=== PATIENT | female | born 1985 | race African-American/Black ===

== ENCOUNTER 2023-12-18 16:43 | Outpatient (CLI) | payer BC, SELFPAY | END 2023-12-18 16:44 | disposition home or self-care (01) | LOC: AMB 12-28 01:20 | PROVIDERS: PCP Family Medicine; Visit Provider Family Medicine | DX: T78.1XXA Other adverse food reactions, not elsewhere classified, initial encounter (principal); T78.49XA Other allergy, initial encounter | CPT/HCPCS: A0425; A0429 ==

== ENCOUNTER 2023-12-18 17:15 | Emergency (ER) | payer BC, SELFPAY ==
[2023-12-18 17:23] VITALS: BP 122/66; PULSE 111; RESP 18; TEMP 37.4; O2SAT 97; BMI 37.6
--- NOTE | 2023-12-18 17:31 | ED.ALLEREA ---
HPI - Allergic Reaction General Time Seen by Provider: 17:32 Date Seen: 12/18/23 Chief complaint: Allergic Reaction Stated complaint: allergic reaction Time Seen by Provider: 12/18/23 17:31 Source: patient, EMS, RN notes reviewed and old records reviewed Mode of arrival: EMS Limitations: no limitations History of Present Illness HPI narrative: 30-year-old female who comes in today with possible allergic reaction, used a hair treatment that she made at of avocado, banana, egg, and manages, after applying this noted itching. She has not used this particular product before, also says she has not eaten avocados before to her knowledge. Benadryl given by EMS, patient is still having lot of itching and some swelling around her eyes, denies breathing difficulty, cough, tongue or lip swelling. Related Data Previous Rx's Medication Instructions Recorded cetirizine 10 mg capsule (Zyrtec) 10 mg PO DAILY #7 caps 12/18/23 epinephrine 0.3 mg/0.3 mL 0.3 mg (0.3 mL) IM Q5-15M PRN #2 ea 12/18/23 injection, auto-injector (EpiPen 2-Juan J) methylprednisolone 4 mg tablets in See Rx Instructions PO .COMPLEX 12/18/23 a dose pack (Medrol (Juan J)) #21 ea Allergies Allergy/AdvReac Type Severity Reaction Status Date / Time No Known Drug Allergies Allergy Verified 12/18/23 17:27 [facility] Social History Smoking Status: Never smoker Do you use any of these nicotine containing products: Vaping Products Second hand tobacco smoke exposure: No How often do you have a drink containing alcohol: monthly or less How many standard drinks containing alcohol do you have on a typical day: 1 or 2 AUDIT-C Alcohol total score: 1 Non-prescribed substance use: denies use service: No Exam Narrative: Exam Narrative: General: Well-developed and well-nourished, no acute distress Head: Atraumatic and normocephalic Eyes: Pupils are equal reactive, extraocular motions intact, conjunctiva clear ENT: External nose and ears are normal, posterior pharynx without erythema or exudate Neck: No midline cervical tenderness, full spontaneous range of motion the neck, trachea midline, no adenopathy Heart: Regular rate and rhythm no murmurs or thrills Lungs: Clear to auscultation bilaterally without wheezes or crackles Abdomen: Soft, nontender, nondistended with active bowel sounds Musculoskeletal: No tenderness, deformity, or edema Neurologic: Awake, alert, and oriented x3, no gross focal neurologic deficits, cranial nerves intact as tested Psych: Mood and affect are appropriate Skin: Excoriations of the feet, hands. Fine generalized erythematous rash. Miles periorbital swelling bilaterally. Const: Vital Signs, click to edit/add: Vital Signs - 24 hr 12/18/23 17:23 12/18/23 17:42 12/18/23 18:18 Temperature 99.4 F Pulse Rate [Pulse Oximeter] 111 H 102 H 70 Respiratory Rate 18 18 18 Blood Pressure [Le ft Upper Arm] 122/66 112/92 H 121/82 Pulse Oximetry 97 97 Oxygen Delivery Me thod Room Air Room Air Room Air 12/18/23 19:17 Temperature Pulse Rate [Pulse Oximeter] 65 Respiratory Rate 18 Blood Pressure [Le ft Upper Arm] 121/82 Pulse Oximetry 97 Oxygen Delivery Me thod Room Air Course Course ED Course: Patient seen examined, prior records are reviewed. Patient presents today with itching, periorbital swelling after using a new product for her today. On exam, scratching and numerous excoriations, no wheezing, no lip or tongue swelling, no difficulty swallowing or speaking. Benadryl given by EMS, patient will be given epinephrine, Pepcid, Decadron. Reevaluation(s) Time of Reevaluation #1: 18:44 Reevaluation #1: Patient recheck, heart rate in itching improved. Will continue to monitor with plan for discharge with Medrol Dosepak, continued antihistamines. Vital Signs Vital signs: Initial Vital Signs Temperature 99.4 F 12/18/23 17:23 Temperature Source Temporal Artery Scan 12/18/23 17:23 Pulse Rate 111 H 12/18/23 17:23 Pulse Rhythm Regular 12/18/23 17:23 Pulse Strength 3+ Normal 12/18/23 17:23 Respiratory Rate 18 12/18/23 17:23 Blood Pressure 122/66 12/18/23 17:23 Blood Pressure Mean 84 12/18/23 17:23 Blood Pressure Position Sitting 12/18/23 17:23 Pulse Oximetry 97 12/18/23 17:23 Oxygen Delivery Method Room Air 12/18/23 17:23 Vital Signs Temperature 99.4 F 12/18/23 17:23 Pulse Rate 111 H 12/18/23 17:23 Respiratory Rate 18 12/18/23 17:23 Blood Pressure 122/66 12/18/23 17:23 Pulse Oximetry 97 12/18/23 17:23 Oxygen Delivery Method Room Air 12/18/23 17:23 Temperature 99.4 F 12/18/23 17:23 Pulse Rate 65 12/18/23 19:17 Respiratory Rate 18 12/18/23 19:17 Blood Pressure 121/82 12/18/23 19:17 Pulse Oximetry 97 12/18/23 19:17 Oxygen Delivery Method Room Air 12/18/23 19:17 Medications Administered Medications: Discontinued Medications Generic Name Dose Route Start Last Admin Trade Name Docq PRN Reason Stop Dose Admin Dexamethasone 10 mg 12/18/23 17:38 12/18/23 18:07 Dexamethasone 10 Mg/Ml Inj IVP 12/18/23 17:39 10 mg ONCE ONE Administration Epinephrine HCl 0.3 mg 12/18/23 17:38 12/18/23 17:52 Epinephrine 0.3 Mg Pen IM 12/18/23 17:39 0.3 mg ONCE ONE Administration Famotidine 20 mg 12/18/23 17:38 12/18/23 18:10 Famotidine 10 Mg/Ml Inj IVP 12/18/23 17:39 20 mg ONCE ONE Administration Discharge Plan Discharge Clinical Impression: Anaphylaxis Patient Disposition: Home, Self-Care Condition: Improved Instructions: General Allergic Reaction (ED) Additional Instructions: Take Benadryl 50 mg every 6 hours for 24 hours then every 6 hours as needed Take Zyrtec as prescribed for 1 week Take Medrol Dosepak as prescribed Activity Level: No Restrictions Discharge Diet: Regular Prescriptions: New Zyrtec 10 mg capsule 10 mg PO DAILY Qty: 7 0RF methylprednisolone [Medrol (Juan J)] 4 mg tablets,dose pack See Rx Instructions .ROUTE .COMPLEX Qty: 21 0RF Rx Instructions: for 6 days epinephrine [EpiPen 2-Juan J] 0.3 mg/0.3 mL auto-injector 0.3 mg IM Q5-15M PRNQty: 2 0RF Rx Instructions: do not exceed 3 doses per episode. If you have to use your EpiPen, call 911 Follow Up/Referrals: Provider,Not a Local [Primary Care Provider] - Stand Alone Forms: MyHealth Info Instructions
[2023-12-18 17:42] VITALS: BP 112/92; PULSE 102; RESP 18; O2SAT 97
[2023-12-18] MEDS: EPINEPHrine 0.3 MG PEN IM (17:52)
[2023-12-18] MEDS: dexAMETHasone 10 MG/ML inj IVP (18:07)
[2023-12-18] MEDS: FAMOTIDINE 10 MG/ML inj 20 MG IVP (18:10)
[2023-12-18 18:18] VITALS: BP 121/82; PULSE 70; RESP 18
[2023-12-18 19:17] VITALS: BP 121/82; PULSE 65; RESP 18; O2SAT 97
[2023-12-18 20:06] VITALS: BP 117/69; PULSE 74; RESP 18
== END 2023-12-18 19:35 | disposition home or self-care (01) ==
PROVIDERS: Emergency Provider Family Medicine
DX: T78.2XXA Anaphylactic shock, unspecified, initial encounter (principal)
CPT/HCPCS: 96372; 96374; 96375; 99284; J0171; J1100; S0028

== ENCOUNTER 2024-07-23 10:12 | Emergency (ER) | payer BC, SELFPAY ==
[2024-07-23 10:19] VITALS: BP 113/72; PULSE 71; RESP 18; TEMP 36.8; O2SAT 96; BMI 31.0
[2024-07-23 11:03] LABS: Appearance Urine Clear (Clear); Bilirubin Urine Negative (Negative); Blood Urine Negative (Negative); Color Urine Yellow (Yellow); Glucose Urine Negative (Negative); Ketones Urine Negative (Negative); Leukocyte Esterase Urine Negative (Negative); Nitrite Urine Negative (Negative); Protein Urine Negative (Negative); Specific Gravity Urine >= 1.030 (1.000-1.030); Urobilinogen Urine 0.2 (0.2-1.0)
[2024-07-23 11:23] LABS: Bacteria Urine Moderate; RBC Urine 0-2 (0-2); Squamous Epithelial Cell Urine Few (None-Few); WBC Urine 0-2 (0-5)
[2024-07-23 11:24] LABS: Mucus Urine Few; Other Sediment Urine FEW YEAST; Trichomonas No Trichomonas Seen (None Seen); Yeast Yeast Seen (None Seen)
[2024-07-23 11:25] LABS: Clue Cells No Clue Cells Seen (None Seen)
--- NOTE | 2024-07-23 11:30 | ED_ITS ---
HPI - General Adult General Chief complaint: Urogenital Problems, Female Stated complaint: Vaginal problem Time Seen by Provider: 07/23/24 10:50 Source: patient Mode of arrival: ambulatory Limitations: no limitations History of Present Illness HPI narrative: 39 Year old female coming in today complaining of vaginal discharge going on for approximately 1 week. Discharge is very watery, has a foul order. She desc ribes it as clear yellowish in color. She denies any systemic symptoms. She is not sexually active, has not been for over 5 years. Periods are regular and monthly. She is not on any control. She states that the discharge comes at any time, she states that a wet her pants at times. She denies any sick white discharge. She denies any vaginal pruritus. Related Data Previous Rx's ?Medication ?Instructions ?Recorded epinephrine 0.3 mg/0.3 mL 0.3 mg (0.3 mL) IM Q5-15M PRN #2 ea 12/18/23 injection, auto-injector (EpiPen 2-Juan J) clobetasol 0.05 % shampoo 1 applic topical QHS 4 weeks #118 04/11/24 mL clobetasol 0.05 % topical ointment 1 applic topical BID #60 grams 04/11/24 fluconazole 150 mg tablet 150 mg PO DAILY 1 dose #1 tab 07/23/24 metronidazole 500 mg tablet 500 mg PO BID 7 days #14 tabs 07/23/24 Allergies Allergy/AdvReac Type Severity Reaction Status Date / Time No Known Drug Allergies Allergy Verified 06/03/24 07:02 Review of Systems Status of ROS: Reports: 6 or more systems reviewed and unremarkable except as noted in History and below [facility] Social History What is your current living situation?: I presently have a place to live Problems where you live: declined to answer In the past 12 months, utilities in danger of being shut off: no In past 12 months, lack of transportation kept you from medical appts, meetings, work, or getting things needed for daily living: yes In the past 12 mos, have been you worried that your food would run out before you had money to buy more?: never true In the past 12 mos, the food you bought just didn't last and you didn't have money to buy more?: never true Smoking Status: Never smoker Do you use any of these nicotine containing products: Vaping Products Second hand tobacco smoke exposure: No How often do you have a drink containing alcohol: monthly or less How many standard drinks containing alcohol do you have on a typical day: 1 or 2 How often do you have six or more drinks on one occasion: Never AUDIT-C Alcohol total score: 1 Non-prescribed substance use: denies use How often does anyone, including family, friends and others, physically hurt you : never How often does anyone, including family, friends and others, insult or talk down to you: fairly often How often does anyone, including family, friends and others, threaten you with harm: never How often does anyone, including family, friends and others, scream or curse at you: sometimes Little interest or pleasure in doing things: not at all Feeling down, depressed, or hopeless: several days service: No Exam Narrative: Exam Narrative: Well-nourished well-developed patient in no acute distress. Alert and oriented. Answers questions appropriately. Mood and affect are appropriate. Thoughts are goal oriented and rational. No tangential or magical thinking noted. Patient speaks in full sentences without needing to catch her breath. HEENT: Normocephalic atraumatic. Pupils are equally round reactive to light. Extraocular muscles are intact. Conjunctivae are moist without any icterus noted. Moist mucous membranes. : Normal external female genitalia. Injured vaginal wall patient has a significant amount of watery yellowish liquid with a strong odor. Examination is very consistent with bacterial vaginosis. No rashes or other abnormalities noted. Const: Vital Signs, click to edit/add: Vital Signs - 24 hr 07/23/24 10:19 Temperature 98.3 F Pulse Rate [Pulse Oximeter] 71 Respiratory Rate 18 Blood Pressure [Le ft Upper Arm] 113/72 Pulse Oximetry 96 Oxygen Delivery Me thod Room Air Course Course ED Course: UA was unremarkable. Wet prep was positive for yeast but no clue cells. Chlamydia gonorrhea testing pending at this time. Vital Signs Vital signs: Initial Vital Signs Temperature 98.3 F 07/23/24 10:19 Temperature Source Temporal Artery Scan 07/23/24 10:19 Pulse Rate 71 07/23/24 10:19 Pulse Rhythm Regular 07/23/24 10:19 Respiratory Rate 18 10/08/24 10:19 Blood Pressure 113/72 07/23/24 10:19 Blood Pressure Mean 85 07/23/24 10:19 Blood Pressure Position Sitting 07/23/24 10:19 Pulse Oximetry 96 07/23/24 10:19 Oxygen Delivery Method Room Air 07/23/24 10:19 Vital Signs Temperature 98.3 F 07/23/24 10:19 Pulse Rate 71 07/23/24 10:19 Respiratory Rate 18 07/23/24 10:19 Blood Pressure 113/72 07/23/24 10:19 Pulse Oximetry 96 07/23/24 10:19 Oxygen Delivery Method Room Air 07/23/24 10:19 Temperature 98.3 F 07/23/24 10:19 Pulse Rate 71 07/23/24 10:19 Respiratory Rate 18 07/23/24 10:19 Blood Pressure 113/72 07/23/24 10:19 Pulse Oximetry 96 07/23/24 10:19 Oxygen Delivery Method Room Air 07/23/24 10:19 Medical Decision Making MDM Narrative Medical decision making narrative: 39-year-old female with vaginal discharge examination at discharge very consistent with bacterial vaginosis, not consistent with yeast vaginitis. However, wet prep was positive for yeast and not clue cells. Therefore at this time we will treat for both bacterial vaginosis and yeast vaginitis with single dose of Diflucan and 7 days of metronidazole. Lab Data Lab results reviewed: Yes I reviewed the patient's lab results Labs: Lab Results 07/23/24 Range/Units Unknown Urine Color Yellow (Yellow) Urine Appearance Clear (Clear) Urine pH 6.0 (5.0-8.5) Ur Specific [place] >= 1.030 (1.000-1.030) Urine Protein Negative (Negative) Urine Glucose (UA) Negative (Negative) Urine Ketones Negative (Negative) Urine Blood Negative (Negative) Urine Nitrite Negative (Negative) Urine Bilirubin Negative (Negative) Urine Urobilinogen 0.2 (0.2-1.0) Ur Leukocyte Esterase Negative (Negative) Urine RBC 0-2 (0-2) Urine WBC 0-2 (0-5) Ur Squamous Epith Cells Few (None-Few) Other Sediment FEW YEAST (None) Urine Bacteria Moderate A (None) Urine Mucus Few A (None) Vaginal Trichomonas No Trichomonas Seen (None Seen) Vaginal Yeast Yeast Seen A (None Seen) Vaginal Clue Cells No Clue Cells Seen (None Seen) Discharge Plan Discharge Clinical Impression: Vaginal discharge, Bacterial vaginosis, Yeast vaginitis Patient Disposition: Home, Self-Care Condition: Stable Additional Instructions: You will be sent home with 2 medications- Take all medications as prescribed. If your symptoms do not improve, you should follow-up with your primary care provider. Prescriptions: New metronidazole 500 mg tablet 500 mg PO BID 7 Days Qty: 14 0RF fluconazole 150 mg tablet 150 mg PO DAILY Qty: 1 0RF Rx Instructions: administer on day 1 of therapy No Action clobetasol 0.05 % ointment 1 applic topical BID Qty: 60 12RF clobetasol 0.05 % shampoo 1 applic topical QHS 28 Days Qty: 118 2RF Rx Instructions: leave in for 15 min before rinsing. epinephrine [EpiPen 2-Juan J] 0.3 mg/0.3 mL auto-injector 0.3 mg IM Q5-15M PRNQty: 2 0RF Rx Instructions: do not exceed 3 doses per episode. If you have to use your EpiPen, call 911 Follow Up/Referrals: Pal Schumacher MD [Primary Care Provider] - Stand Alone Forms: [facility] Info Instructions
[2024-07-23 12:31] LABS: Chlamydia DNA Amplified* NOT DETECTED (No Detected); GC DNA Amplified* NOT DETECTED (No Detected)
== END 2024-07-23 12:05 | disposition home or self-care (01) ==
PROVIDERS: Emergency Provider Family Medicine; PCP Family Medicine
DX: N76.0 Acute vaginitis (principal); B37.31 Acute candidiasis of vulva and vagina
CPT/HCPCS: 81001; 87086; 87186; 87210; 87491; 87591; 99283; 99284

== ENCOUNTER 2025-05-23 05:48 | Inpatient (IN) | payer BC, SELFPAY ==
[2025-05-23] VITALS (17 sets, daily range): BP systolic 122–156; BP diastolic 62–83; PULSE 71–104; RESP 16–20; TEMP 36.6–37; O2SAT 94–99; BMI 48.4
[2025-05-23] MEDS: AMPICILLIN 2 GM in 0.9 % SODIUM CHLORIDE Mini-bag 100 ML IVPB (06:35)
[2025-05-23 06:38] LABS: Hematocrit 36.4 % (33.0-51.0); Hemoglobin* 11.7 gm/dL (12.0-16.0); Immature Granulocytes Abs Auto 0.01 K/uL (0.00-0.30); Immature Granulocytes Pct Auto 0.1 %; Lymphocytes Absolute Auto 1.64 K/uL (0.90-2.90); Mean Corpuscular HGB Conc 32 gm/dL (32-36); Mean Corpuscular Hemoglobin 27 pg (26-34); Mean Corpuscular Volume 85 fL (80-100); RDW Coefficient of Variation % 16.0 % (11.5-15.5); Red Blood Count 4.29 m/uL (4.00-5.20); White Blood Count* 7.98 K/uL (4.50-11.00)
[2025-05-23 06:44] LABS: Slide Review Reflex No
--- NOTE | 2025-05-23 07:36 | PM.OBHPLI ---
OB - H&P: HPI Labor/Induction History of Present Illness Time Seen by Provider: 07:30 Date Seen: 05/23/25 Chief Complaint: The patient is a 40 year old 7 para 6 at 39 weeks gestation by 18wk US c/w LMP, who presents for induction due to AMA and BMI. Chief complaint: Maternity : 7 Para: 6 Date of last menstrual period: 08/25/24 Estimated date of delivery: 06/01/25 Gestational age based on last menstrual period: 38 Narrative: Mary Everett is a 40 year old 7 para 6 at 39 weeks gestation by 18wk US c/w LMP, who presents for induction due to AMA and BMI. pt reports feeling well. no concerns. no ctxs. no bleeding. no headaches or vision changes. Eager for induction today Her is significant for: 1. unclear dating: pt established care in first trimester but missed dating US and did not get until 18wks. pt reports certain of conception date of 08/31/24 = ZULEYMA 05/24/25, based on uncertain LMP of 08/25/24 ZULEYMA = 06/01/25, first US at 18wks ZULEYMA = 05/30/25. Using objective data with ZULEYMA set 08/30/25 2. AMA/BMI>40: on baby asa started at 12wks. Saw [facility]. Level 2US and echo wnl. Getting weekly BPP's since 32wks. Growth US 04/30/25 EFW 15%, prev was 81% at 22wks. Referred back to [facility] for followup US, pt never scheduled. Anesthesiology consult ordered, pt did not schedule. 3. Iron deficiency anemia: hgb 11/26/24 = 11.3, started oral iron hgb 04/14/25 = 10.6 Iron infusion 05/05/25 and 05/12/25, repeat hgb 05/19/25 = 11.3 4. +GBS 5. No hx complications per pt. Deliveries all term vaginal, no hx PPH. History of Present Dating criteria: other (based on 18wk US c/w LMP, see above) care: other (intermittent care, missed multiple apts) Ultrasounds: other (see above) Labs Blood type: O (+) positive Rubella: immune RPR/VDLR: nonreactive GBS status: positive HBsAG: negative Meds Home Medications and Allergies Home Medications ?Medication ?Instructions ?Recorded ?Confirmed ?Type epinephrine 0.3 mg/0.3 mL 0.3 mg (0.3 mL) IM Q5-15M PRN #2 ea 12/18/23 06/03/24 Rx injection, auto-injector (EpiPen 2-Juan J) clobetasol 0.05 % shampoo 1 applic topical QHS 4 weeks #118 04/11/24 06/03/24 Rx mL clobetasol 0.05 % topical ointment 1 applic topical BID #60 grams 04/11/24 06/03/24 Rx fluconazole 150 mg tablet 150 mg PO DAILY 1 dose #1 tab 07/23/24 Rx metronidazole 500 mg tablet 500 mg PO BID 7 days #14 tabs 07/23/24 Rx Allergies Allergy/AdvReac Type Severity Reaction Status Date / Time No Known Drug Allergies Allergy Verified 06/03/24 07:02 OB - H&P: Exam Physical Exam: Vital signs: Temp Pulse Resp BP Pulse Ox 98.4 F 71 16 128/83 98 05/23/25 07:21 05/23/25 07:15 05/23/25 07:21 05/23/25 07:15 05/23/25 06:10 Constitutional: Constitutional: no acute distress and cooperative Routine HEENT Exam: Head: Present normal inspection Eye: Present normal appearance ENT: Present mucous membranes moist Routine Respiratory Exam: Respiratory: Present CTA bilaterally Routine Cardiovascular Exam: Cardiovascular: RRR Detailed Labor and Delivery Exam: Patient Gravid: yes Dilation (cm): 1 (based on check from clinic visit 05/19/25) Effacement (%): 20 Cervix position: mid Consistency: medium Cervical ripeness score: 3 Contraction frequency (min): 0 Fetus (Single): Station: -3 Amniotic Membrane Status: intact Heart Rate Baseline: 130 Monitor Accelerations: Present Monitor Decelerations: None Custodial Variability: Moderate (6-25) Routine Psychiatric Exam: Present normal affect OB - Results Labs Labs: Short CBC 05/23/25 Range/Units 06:21 WBC 7.98 (4.50-11.00) K/uL Hgb 11.7 L (12.0-16.0) gm/dL Hct 36.4 (33.0-51.0) % Plt Count 131 L (140-440) K/uL OB - Problem Based A/P Additional Plan (1) Obesity affecting : Status: Acute (2) Advanced maternal age (AMA), 40 years or greater: Status: Acute (3) 39 weeks gestation of : Status: Acute Plan Prev discussed recommendation for induction 39-40wks due to AMA/BMI, pt in agreement. Induction methods and variability discussed. All ?'s answered. GBS positive, abx started. Cytotec oral per protocol. Discussed plan with pt and RN. Notified OB of induction due to BMI policy
[2025-05-23] MEDS: AMPICILLIN 1 GM in 0.9 % SODIUM CHLORIDE Mini-bag 100 ML IVPB ×4 (10:37→22:32)
[2025-05-23] MEDS: LACTATED RINGERS 1000 ML 1,000 ML 125 ML IV (16:51)
--- NOTE | 2025-05-23 18:03 | PM.OBPNL ---
Subjective Time Seen by Provider: 18:45 Date Seen: 05/23/25 Narrative: pt has received 5 doses of oral cytotec throughout the day. She reports she is not feeling any contractions or cramping. Reports feeling pretty much the same all day. Does feel good movement and says some pressure with certain movements but nothing significantly different throughout the day. Objective Vital Signs: Last Vital Signs Temp 98.6 F 05/23/25 16:52 Pulse 81 05/23/25 16:16 Resp 16 05/23/25 16:52 BP 129/71 05/23/25 16:16 Pulse Ox 99 05/23/25 16:53 Contractions Monitor mode: External Contraction Frequency: q1-3minutes on monitor, pt not feeling Contraction pattern: Irregular Assessment Station: -3 Heart Rate Baseline: 135 Financial Services Consultant Variability: Moderate (6-25) Monitor Accelerations: Present Monitor Decelerations: None Plan Plan: 40yo at 39wks here for induction due to AGA/BMI. -confirmed cephalic position by bedside US (had US earlier this week confirming as well) -GBS positive, on abxs -received 5 doses cytotec without cervical change per recent RN check and not feeling any ctxs. Discussed switching induction method to Cook catheter and reviewed at length with pt. Pt in agreement with plan. Cook catheter placed and cervix was noted to have little change at 2cm/30/-3. Continued with plan to place cook as still unfavorable and not feeling ctxs and pt wanting to try different method induction. Cook placed without difficulty. Plan low dose pitocin at midnight. discussed plan with pt and RN. All ?'s answered. Of note, BP check immediately after Cook placement while pt talking and shuffling legs (per RN) was 156/76. First BP at or > 140/90. Plan recheck and if remains elevated will get preE labs.
[2025-05-23] MEDS: OXYTOCIN 30 unit/500 ML in NS 30 UNIT/500 ML BAG IVPB (23:57)
[2025-05-24] VITALS (26 sets, daily range): BP systolic 108–153; BP diastolic 56–91; PULSE 74–97; RESP 16–20; TEMP 36.6–36.8; O2SAT 94–98
[2025-05-24] MEDS: LACTATED RINGERS 1000 ML 1,000 ML 125 ML IV (02:24)
--- NOTE | 2025-05-24 02:43 | PM.OBPNL ---
Subjective Time Seen by Provider: 02:36 Date Seen: 05/24/25 Narrative: Per RN, patient SROM's with clear fluid at 0127. Cook removed at that time and 3-4/thinning/-2 per RN. Contractions increasing in intensity since. RN reports FHT with period tachycardia so given IVF bolus and resolved. Currently patient reports significantly increased ctx frequency and intensity. Currently up walking from bathroom back to bed and stopping to breath through contractions. Requests fentanyl. RN did recheck cervix just prior to bathroom and reports 4/80/-2. Immediately after getting in bed, bp check with 144/84. BP's have all been <140/90 prior to this except 1 at 1561 immediately after cook placement while she was talking and shuffling feet was 156/76. Recheck 5min later 130/68 and follwing that have been 108-132/62-72. Objective Vital Signs: Last Vital Signs Temp 98.3 F 05/24/25 01:20 Pulse 74 05/24/25 02:39 Resp 16 05/24/25 01:01 BP 144/84 H 05/24/25 02:39 Pulse Ox 98 05/23/25 23:16 Contractions Monitor mode: External Contraction Frequency: q1-4min Contraction pattern: Irregular Pitocin Rate (mU/min): 2 Assessment Station: -2 Amniotic Membrane Status: SROM Heart Rate Baseline: 130 Tractor Trailer Driver Variability: Moderate (6-25) Monitor Accelerations: Present Monitor Decelerations: None Plan Plan: 40yo at 39 1/7 here for induction due to AMA/BMI, SROM approximately 1 hour ago and transitioning into active labor. -known GBS+, has received adequate abx, continue -plan expectant management
[2025-05-24] MEDS: AMPICILLIN 1 GM in 0.9 % SODIUM CHLORIDE Mini-bag 100 ML IVPB (03:56)
[2025-05-24] MEDS: miSOPROStoL 800 MCG/4 TABLET PR (04:29)
[2025-05-24] MEDS: TRANEXAMIC ACID 100 MG/ML INJ 1000 MG IV (04:34)
--- NOTE | 2025-05-24 04:52 | W.PM.VAGDEL1 ---
Procedure Delivery date: 05/24/25 Procedure Done: Global Procedure Details: The patient is a 40 year-old admitted on 05/23/25 at 39 Weeks, 0 Days gestation for induction due to AMA/BMI.? Cervical exam on admission was 1 cm/20 % effaced/-3 station with membranes intact in vertex presentation.? She was not chan. heart rate demonstrated baseline 130 bpm with moderate variability, + accelerations, - decelerations; a category 1 tracing.?She received oral cytotec per protocol for total 5 doses. After the 5 doses, she was not feeling any contractions and Cook catheter was placed at 1815 on 05/23/25. Low dose pitocin was started around midnight. SROM occurred at 0127 on 05/24/25 with clear fluid and Cook removed. Cervix was 3.5cm. Active labor began around 0225. She then progressed quickly and was complete by 0417 and started pushing at 0420. She pushed once and delivered a female from vertex position at 0421. ? Labor Analgesia:? fentanyl ? Pitocin:? Yes ? Labor onset:? 0225 ? Complete:? 0417 ? Pushing:? 0420 ?? At 0421 a viable female delivered in vertex presentation over intact perineum via spontaneous vaginal delivery.? was placed on maternal abdomen and had spontaneous crying.? Cord was clamped and cut after a 60+ second delay.? Nose and mouth were bulb suctioned.? Infant weight pending.? 8 at 1 minute and 9 at 5 minutes.? Shoulder dystocia: no.? Nuchal cord: no. ? Active management of placenta was performed. Pitocin was given. Her IV insertion did require nurse to adjust it during this time to keep IV working. This was successful. patient did have medium sized clot immediately prior to placenta delivering spontaneously, complete and intact with 3VC. Rectal cytotec was given. Fundal massage performed by RN. There was a gush of blood and TXA ordered and I performed bimanual massage with distal uterine atony noted. This did respond well to the bimanual massage and medications. No further significant bleeding was noted. ? Mother and infant were stable after delivery. ? Lacerations:? None. ? Blood loss: 200 mL. Blood loss measurement type: EBL ? Sponge and needles counts are correct. Events: Labor Induction and AMA Intrapartal Events: Precipitous Labor <3 Hrs Delivery monitor: external FHT Route of delivery: Laceration description: None Gender: Female presentation: vertex Placental Delivery Description: Spontaneous Cord Description: 3 Vessels
[2025-05-24] MEDS: BENZOCAINE/MENTHOL SPRAY 85 GM AEROSOL 1 APPLIC TOPICAL (05:00)
[2025-05-24] MEDS: IBUPROFEN 600 MG TABLET PO ×2 (08:09→20:22)
[2025-05-24] MEDS: ACETAMINOPHEN 500 MG TABLET 1000 MG PO (14:40)
[2025-05-24 21:45] LABS: Hematocrit 32.3 % (33.0-51.0); Hemoglobin* 10.5 gm/dL (12.0-16.0); Mean Corpuscular HGB Conc 33 gm/dL (32-36); Mean Corpuscular Hemoglobin 28 pg (26-34); Mean Corpuscular Volume 86 fL (80-100); Red Blood Count 3.76 m/uL (4.00-5.20); White Blood Count* 11.50 K/uL (4.50-11.00)
[2025-05-24 21:46] LABS: Slide Review Reflex No
[2025-05-24 21:59] LABS: Alanine Aminotransferase* 23 U/L (4-35); Aspartate Amino Transferase* 34 U/L (12-35); Blood Urea Nitrogen* 9 mg/dL (5-24); Creatinine* 0.6 mg/dL (0.5-1.5); Est. Creatinine Clearance* 103.10; Estimated Glomerular Filt Rate 116 ml/min
[2025-05-25] VITALS (7 sets, daily range): BP systolic 113–141; BP diastolic 75–92; PULSE 60–90; RESP 16–20; TEMP 36.6–36.9; O2SAT 96–99
[2025-05-25] MEDS: ACETAMINOPHEN 500 MG TABLET 1000 MG PO ×2 (01:05→13:08)
[2025-05-25 05:26] LABS: Hemoglobin* 10.2 gm/dL (12.0-16.0)
[2025-05-25] MEDS: DOCUSATE SODIUM 100 MG CAPSULE PO (08:19)
[2025-05-25] MEDS: IBUPROFEN 600 MG TABLET PO ×3 (08:19→20:30)
--- NOTE | 2025-05-25 11:14 | P.OBPN_ITS ---
OB - PN:Subj Subjective Time Seen by Provider: 11:00 Date Seen: 05/25/25 Interval history: Mary reports she is feeling well. She does not have concerns. She is and supplementing. Has been up around room without difficulty. Voiding. Tolerating orals. Lochia scant per RN BP was noted to be elevated last evening 153/90, recheck 15min later was 135/91. PreE labs negative. Asymptomatic. Repeat BP after labs 137/84. BP's since 120- 130's/80's. OB - PN: Obj Exam Physical Exam: Vital signs: Temp Pulse Resp BP Pulse Ox O2 Del Method 98.2 F 70 16 136/84 98 Room Air 05/25/25 09:06 05/25/25 09:06 05/25/25 09:06 05/25/25 09:06 05/25/25 09:06 05/25/25 09:06 Constitutional: Constitutional: no acute distress Routine HEENT Exam: Head: Present normal inspection Eye: Present normal appearance ENT: Present mucous membranes moist Routine Abdominal Exam: Fundus: Present firm (below umbilicus) Detailed Lower Extremity Exam: Comments: no edema Routine Psychiatric Exam: Psychiatric: Present normal affect, normal thought process and good judgment OB - PN: Obj Data Labs Labs: Laboratory Results - last 24 hr 05/23/25 05/24/25 05/25/25 06:21 21:39 05:09 WBC 11.50 H RBC 3.76 L Hgb 10.5 L 10.2 L Hct 32.3 L MCV 86 MCH 28 MCHC 33 Plt Count 135 L BUN 9 Creatinine 0.6 Estimated Creat Clear 103.10 Estimated GFR 116 AST 34 ALT 23 RPR Screen Non Reactive OB - PN: A/P Delivery Assessment and Plan (1) Obesity affecting : Status: Acute (2) Advanced maternal age (AMA), 40 years or greater: Status: Acute (3) 39 weeks gestation of : Problem details: , now 7, delivered at 39 1/7wks by preciptious 05/24/25 at 0421. Was induced for AMA/BMI (cytotec, cook, pitocin). Has had elevated BP x 3 since admit, each repeat 5-15min later <140/90. PreE labs wnl 8/9/24 evening. Status: Acute Plan -elevated BP x 3 since admit, repeat BP's each time < 140/90. PreE labs wnl last evening. Discussed with RN and pt if BP again at or above 140/90, would start medication. She is asymptomatic. -routine care otherwise.
[2025-05-26 01:06] VITALS: BP 121/80; PULSE 75; RESP 16; O2SAT 96
[2025-05-26 03:40] VITALS: BP 128/82; PULSE 74; RESP 18; TEMP 36.7
[2025-05-26] MEDS: IBUPROFEN 600 MG TABLET PO ×2 (03:41→08:43)
--- NOTE | 2025-05-26 08:11 | PM.OBDSVD1 ---
DS: Providers Provider Date Seen: 05/26/25 Date of admission: 05/23/25 05:48 Primary care physician: Not a Local Provider Admitting Clinician: Elli Pierson DO Attending Physician on discharge: Elli Pierson DO DS: Diagnosis Discharge Diagnosis (1) hypertension: Status: Acute Problem details: on nifedipine; BP check with primary OB in the next week at infant's weight check appointment Exam Narrative: Exam Narrative: Gen: alert, pleasant, NAD Resp: CTA b/l, breathing comfortably on room air Heart: RRR, no murmurs Abd: soft, nontender, fundus firm Neuro: moves all extremities, no focal deficits Psych: mood and affect appropriate Const: Vital Signs, click to edit/add: Vital Signs - 24 hr 05/25/25 09:06 05/25/25 13:50 05/25/25 14:00 Temperature 98.2 F 98.2 F Pulse Rate [Pulse Oximeter] 70 74 Respiratory Rate 16 16 Blood Pressure [Ri ght Arm] 136/84 141/92 H 136/88 Pulse Oximetry 98 98 Oxygen Delivery Me thod Room Air Room Air 05/25/25 16:00 05/25/25 20:26 05/26/25 01:06 Temperature 98.4 F Pulse Rate [Pulse Oximeter] 68 90 75 Respiratory Rate 16 16 16 Blood Pressure [Ri ght Arm] 115/78 113/75 121/80 Pulse Oximetry 99 98 96 Oxygen Delivery Me thod Room Air Room Air Room Air 05/26/25 03:40 Temperature 98.1 F Pulse Rate [Pulse Oximeter] 74 Respiratory Rate 18 Blood Pressure [Ri ght Arm] 128/82 Pulse Oximetry Oxygen Delivery Me thod OB - DS: Summary Hospital Course Hospital Course: Patient is a 40 year-old G7 now P7 admitted on 05/23/25 at 39 Weeks, 0 Days gestation for induction due to AMA & BMI.?She delivered precipitously following one push on 05/24/25 and had a female in vertex position at 0421. Apgars were 8 and 9. Placenta delivered spontaneously and intact. There was atony of the lower uterine segment and patient received Pitocin, Cytotec, and TXA following delivery. EBL 200 mL. No lacerations. On PPD 0 and PPD 1, patient had some elevated blood pressures. Pre-eclampsia labs were negative. Nifedipine 30 mg daily was started. Patient denies headaches, vision changes, RUQ pain, or changes in swelling. Bleeding has been appropriate, no clots noted. Does note uterine cramping during . Infant Gender: Female Status at Discharge Functional status at discharge: independent ambulation Time Spent with Patient Time attestation: Total time spent providing and/or coordinating discharge services: Discharge Plan Discharge Disposition: Home, Self-Care Date of Admission: 05/23/25 05:48 Attending Provider on Discharge: Arianna Garcia Primary Care Provider: Provider,Not a Local Condition: Stable Anticipated Discharge Date/Time: 05/26/25 12:00 Discharge Medications: New nifedipine 30 mg Tablet Extended Release 30 mg PO DAILY Qty: 30 0RF acetaminophen 500 mg Tablet 1,000 mg PO Q6H PRNQty: 40 0RF ibuprofen 600 mg Tablet 600 mg PO Q6H PRNQty: 40 0RF Continued clobetasol 0.05 % ointment 1 applic topical BID Qty: 60 12RF clobetasol 0.05 % shampoo 1 applic topical QHS 28 Days Qty: 118 2RF Rx Instructions: leave in for 15 min before rinsing. epinephrine [EpiPen 2-Juan J] 0.3 mg/0.3 mL auto-injector 0.3 mg IM Q5-15M PRNQty: 2 0RF Rx Instructions: do not exceed 3 doses per episode. If you have to use your EpiPen, call 911 docusate sodium 100 mg capsule 100 mg PO DAILY PRN (Reason: constipation) clobetasol 0.05 % solution topical BID ondansetron 4 mg tablet,disintegrating 4 mg PO Q8H PRN (Reason: nausea/vomiting) Vitamin Plus Low Iron 27 mg iron- 1 mg tablet 1 tab PO DAILY ferrous sulfate 220 mg (44 mg iron)/5 mL elixir 308 mg PO DAILY triamcinolone acetonide 0.1 % ointment topical BID Discontinued aspirin 81 mg tablet,delayed release (DR/EC) 81 mg PO DAILY Discharge Orders: Discharge Order (Routine); Ordered 05/26/25 Ordered By: Arianna Garcia Patient Education: Hypertension During (DC), OB Vaginal/Breast Feeding Follow Up Appointments: Provider,Not a Local [Primary Care Provider, Family Practice] Elli Pierson DO [Staff Physician, Family Practice] Referral Note: BP follow up Forms: MyHealth Info Instructions
[2025-05-26 08:28] VITALS: BP 136/82; PULSE 72; RESP 16; TEMP 36.9; O2SAT 98
[2025-05-26] MEDS: DOCUSATE SODIUM 100 MG CAPSULE PO (08:38)
[2025-05-26 13:31] VITALS: BP 132/77; PULSE 70; RESP 16; TEMP 36.8; O2SAT 98
== END 2025-05-26 14:00 | disposition home or self-care (01) | DRG 560 ==
PROVIDERS: Admitting Provider Family Medicine; Visit Provider Family Medicine
DX: O99.824 Streptococcus B carrier state complicating childbirth (principal); O62.3 Precipitate labor; O62.2 Other uterine inertia; O16.5 Unspecified maternal hypertension, complicating the puerperium; O99.214 Obesity complicating childbirth; E66.9 Obesity, unspecified; O99.02 Anemia complicating childbirth; D50.9 Iron deficiency anemia, unspecified; Z37.0 Single live birth; Z3A.39 39 weeks gestation of pregnancy
CPT/HCPCS: 36415; 59200; 76815; 82565; 84450; 84460; 84520; 85018; 85025; 85027; 86592; 86850; 86900; 86901; A9270; C1726; J0290; J3010; J7120